=== PATIENT | male | born 1990 | race African-American/Black ===

== ENCOUNTER 2017-06-30 23:51 | Emergency (ER) | payer OTHER ==
[~2017-06-30] VITALS: Ht 182.9 cm; Wt 83.0 kg
[2017-07-01 02:52] VITALS: BP 127/83
== END 2017-07-01 02:54 | disposition home or self-care (01) ==
LOC: ER 23:59
DX: S09.90XA Unspecified injury of head, initial encounter (principal); I10 Essential (primary) hypertension; F17.200 Nicotine dependence, unspecified, uncomplicated; F31.9 Bipolar disorder, unspecified; W01.0XXA Fall on same level from slipping, tripping and stumbling without subsequent striking against object, initial encounter; Y93.89 Activity, other specified; Y99.8 Other external cause status; Y92.89 Other specified places as the place of occurrence of the external cause; Z98.890 Other specified postprocedural states
CPT/HCPCS: 99281

== ENCOUNTER 2017-07-04 01:47 | Emergency (ER) | payer MEDICAID, OTHER ==
[~2017-07-04] VITALS: Ht 182.9 cm; Wt 87.0 kg
[2017-07-04 03:10] LABS: BASOPHILS % 0.7 % (0.0-2.0); EOSINOPHILS % 0.7 % (0.0-5.0); HEMATOCRIT. 47.5 % (42.0-52.0); LYMPHOCYTES % 20.4 % (20.0-50.0); MEAN CORPUSCULAR HEMOGLOBIN 29.8 pg (28.0-32.0); MEAN CORPUSCULAR VOLUME 88.4 fL (80.0-94.0); MEAN PLATELET VOLUME 8.2 fl (7.4-10.4); MONOCYTES % 10.8 % (2.0-8.0); NEUTROPHILS % 67.4 % (40.0-76.0); PLATELET 305 x1000/uL (130-400); RED BLOOD CELL COUNT 5.38 mill/uL (4.7-6.1); RED CELL DISTRIBUTION WIDTH 13.5 % (11.6-14.6)
[2017-07-04 03:12] LABS: CHLORIDE 99 mEq/L (98-107)
[2017-07-04 03:18] LABS: CARBON DIOXIDE 27 mEq/L (21-32); ETHANOL BLOOD < 10 mg/dL
[2017-07-04 03:26] LABS: *AMPHETAMINES SCREEN URINE NEGATIVE (NEGATIVE); *BARBITURATES SCREEN URINE NEGATIVE (NEGATIVE); *BENZODIAZEPINES SCREEN URINE NEGATIVE (NEGATIVE); *COCAINE SCREEN URINE PRESUMTIVE POSITIVE (NEGATIVE); CANNABINOID URINE SCREEN NEGATIVE (NEGATIVE); METHADONE URINE SCREEN NEGATIVE (NEGATIVE); OPIATES URINE SCREEN NEGATIVE (NEGATIVE); PHENCYCLIDINE URINE SCREEN NEGATIVE (NEGATIVE)
[2017-07-04 05:53] VITALS: BP 149/80
== END 2017-07-04 06:25 | disposition home or self-care (01) ==
LOC: ER 01:47
DX: F14.10 Cocaine abuse, uncomplicated (principal); F20.9 Schizophrenia, unspecified; R44.0 Auditory hallucinations; F17.210 Nicotine dependence, cigarettes, uncomplicated; F31.9 Bipolar disorder, unspecified; Z98.890 Other specified postprocedural states; F12.10 Cannabis abuse, uncomplicated
CPT/HCPCS: 36415; 80048; 80305; 80307; 80329; 85025; 99284; G0482

== ENCOUNTER 2017-11-09 00:09 | Emergency (ER) | payer MEDICAID, OTHER ==
[~2017-11-09] VITALS: Ht 182.9 cm; Wt 83.0 kg
[2017-11-09] MEDS ORDERED: ONDANSETRON 4MG ODT PO STA (03:54)
[2017-11-09] MEDS ORDERED: IBUPROFEN 600MG TABLET PO STA (03:54)
[2017-11-09 04:11] LABS: BASOPHILS % 0.6 % (0.0-2.0); EOSINOPHILS % 5.8 % (0.0-5.0); HEMATOCRIT. 46.2 % (42.0-52.0); HEMOGLOBIN. 15.6 g/dL (14.0-18.0); LYMPHOCYTES % 27.8 % (20.0-50.0); MEAN CORPUSCULAR HEMOGLOBIN 29.5 pg (28.0-32.0); MEAN CORPUSCULAR VOLUME 87.7 fL (80.0-94.0); MEAN PLATELET VOLUME 7.9 fl (7.4-10.4); MONOCYTES % 9.8 % (2.0-8.0); PLATELET 250 x1000/uL (130-400); RED BLOOD CELL COUNT 5.27 mill/uL (4.7-6.1)
[2017-11-09 04:18] LABS: CHLORIDE 104 mEq/L (98-107)
[2017-11-09 04:18] LABS: CLARITY URINE CLEAR (CLEAR); COLOR URINE YELLOW (YELLOW); KETONES URINE NEGATIVE (NEGATIVE); LEUKOCYTE ESTERASE URINE NEGATIVE (NEGATIVE); NITRITE URINE NEGATIVE (NEGATIVE); OCCULT BLOOD URINE NEGATIVE (NEGATIVE); PH URINE 6.5 (4.5-8.0); PROTEIN URINE NEGATIVE (NEGATIVE); UROBILINOGEN URINE 0.2 E.U./dL (0.2-1.0)
[2017-11-09 04:19] LABS: INR 1.1; PROTHROMBIN TIME 11.2 sec (9.4-11.6)
[2017-11-09] MEDS ORDERED: MAGNESIUM/ALUMINUM HYDROXIDE/SIMETHICONE 30ML UDC PO STA (04:57)
[2017-11-09] MEDS ORDERED: DICYCLOMINE 10 MG/5 ML ORAL SYR PO STA (04:57)
[2017-11-09] MEDS ORDERED: VISCOUS LIDOCAINE 2% 15 ML UDC PO STA (04:57)
[2017-11-09 05:24] VITALS: BP 122/76
== END 2017-11-09 05:28 | disposition home or self-care (01) ==
LOC: ER 01:21
DX: R10.12 Left upper quadrant pain (principal); R74.0 Nonspecific elevation of levels of transaminase and lactic acid dehydrogenase [LDH]; I10 Essential (primary) hypertension; F12.90 Cannabis use, unspecified, uncomplicated
CPT/HCPCS: 36415; 80053; 81003; 83690; 85025; 85610; 99284; Q0162

== ENCOUNTER 2017-12-12 01:47 | Emergency (ER) | payer OTHER ==
[~2017-12-12] VITALS: Ht 182.9 cm; Wt 87.0 kg
[2017-12-12] MEDS ORDERED: LIDOCAINE 5% PATCH TOP STA (04:22)
[2017-12-12] MEDS ORDERED: SODIUM CHLORIDE 0.9% 1,000 ML IV ONE (04:22)
[2017-12-12 05:27] LABS: BASOPHILS % 0.5 % (0.0-2.0); EOSINOPHILS % 12.9 % (0.0-5.0); HEMATOCRIT. 50.5 % (42.0-52.0); LYMPHOCYTES % 26.5 % (20.0-50.0); MEAN CORPUSCULAR HEMOGLOBIN 29.5 pg (28.0-32.0); MEAN CORPUSCULAR VOLUME 87.4 fL (80.0-94.0); MEAN PLATELET VOLUME 8.1 fl (7.4-10.4); MONOCYTES % 8.9 % (2.0-8.0); NEUTROPHILS % 51.2 % (40.0-76.0); PLATELET 231 x1000/uL (130-400); RED BLOOD CELL COUNT 5.78 mill/uL (4.7-6.1); RED CELL DISTRIBUTION WIDTH 13.3 % (11.6-14.6)
[2017-12-12 05:30] LABS: PROTHROMBIN TIME 10.8 sec (9.4-11.6)
[2017-12-12 05:37] LABS: CHLORIDE 103 mEq/L (98-107)
[2017-12-12 05:42] LABS: ETHANOL BLOOD < 10 mg/dL
[2017-12-12 06:27] LABS: BASOPHILS % 0.6 % (0.0-2.0); HEMATOCRIT. 48.7 % (42.0-52.0); HEMOGLOBIN. 16.5 g/dL (14.0-18.0); LYMPHOCYTES % 25.5 % (20.0-50.0); MEAN CORPUSCULAR HEMOGLOBIN 29.6 pg (28.0-32.0); MEAN CORPUSCULAR VOLUME 87.4 fL (80.0-94.0); MEAN PLATELET VOLUME 8.1 fl (7.4-10.4); MONOCYTES % 8.4 % (2.0-8.0); NEUTROPHILS % 51.5 % (40.0-76.0); PLATELET 244 x1000/uL (130-400); RED BLOOD CELL COUNT 5.57 mill/uL (4.7-6.1); RED CELL DISTRIBUTION WIDTH 13.2 % (11.6-14.6)
[2017-12-12 07:19] VITALS: BP 130/87
== END 2017-12-12 07:19 | disposition home or self-care (01) ==
LOC: ER 01:47
DX: S00.83XA Contusion of other part of head, initial encounter (principal); S02.32XA Fracture of orbital floor, left side, initial encounter for closed fracture; M54.2 Cervicalgia; M54.89 Other dorsalgia; R40.0 Somnolence; V43.52XA Car driver injured in collision with other type car in traffic accident, initial encounter; Y93.89 Activity, other specified; Y92.488 Other paved roadways as the place of occurrence of the external cause; F17.210 Nicotine dependence, cigarettes, uncomplicated
CPT/HCPCS: 36415; 70450; 70486; 71045; 72125; 80053; 83690; 85025; 85610; 99285; G0482; J7030

== ENCOUNTER 2024-07-04 21:23 | Emergency (ER) | payer MEDICAID, OTHER ==
[~2024-07-04] VITALS: Ht 182.9 cm; Wt 85.0 kg
[2024-07-04 21:29] VITALS: O2SAT 99
[2024-07-05] MEDS: CYCLOBENZAPRINE 10MG TABLET PO ONE (02:30)
[2024-07-05] MEDS: KETOROLAC 30MG/ML VIAL IM ONE (02:30)
[2024-07-05] MEDS ORDERED: NAPR-1176 MT (03:41)
[2024-07-05 04:05] VITALS: BP 149/92; PULSE 98; RESP 15; TEMP 36.66960; O2SAT 100
== END 2024-07-05 04:10 | disposition home or self-care (01) ==
LOC: ER 21:23
DX: M54.50 Low back pain, unspecified (principal); I10 Essential (primary) hypertension; W01.0XXA Fall on same level from slipping, tripping and stumbling without subsequent striking against object, initial encounter; Y93.89 Activity, other specified; Y92.89 Other specified places as the place of occurrence of the external cause; Y99.8 Other external cause status
CPT/HCPCS: 72131; 96372; 99285; J1885

== ENCOUNTER 2024-07-29 22:34 | Emergency (ER) | payer MEDICAID, OTHER ==
[~2024-07-29] VITALS: Ht 180.3 cm; Wt 90.0 kg
[~2024-07-29 22:34] MED LIST: NAPR-1176 MT
[2024-07-29 22:43] VITALS: BP 170/96; PULSE 76; RESP 16; TEMP 98.9; O2SAT 100
== END 2024-07-30 00:20 | disposition home or self-care (01) ==
LOC: ER 22:34
DX: F41.9 Anxiety disorder, unspecified (principal); I10 Essential (primary) hypertension; J45.909 Unspecified asthma, uncomplicated; R07.89 Other chest pain
CPT/HCPCS: 93005; 99283

== ENCOUNTER 2024-08-19 03:59 | Emergency (ER) | payer OTHER ==
[~2024-08-19] VITALS: Ht 180.3 cm; Wt 87.0 kg
[2024-08-19 04:06] VITALS: O2SAT 95
[2024-08-19 04:14] VITALS: BP 111/77; PULSE 100; RESP 16; TEMP 98.5; O2SAT 98
== END 2024-08-19 05:12 | disposition left against medical advice (07) ==
LOC: ER 03:59
DX: S61.412A Laceration without foreign body of left hand, initial encounter (principal); J45.909 Unspecified asthma, uncomplicated; I10 Essential (primary) hypertension; W25.XXXA Contact with sharp glass, initial encounter; Y93.89 Activity, other specified; Y92.89 Other specified places as the place of occurrence of the external cause; Y99.8 Other external cause status
CPT/HCPCS: 99281

== ENCOUNTER 2024-08-21 23:09 | Emergency (ER) | payer OTHER ==
[~2024-08-21] VITALS: Ht 172.7 cm; Wt 82.0 kg
[2024-08-21 23:14] VITALS: BP 142/100; PULSE 98; RESP 18; TEMP 36.8; O2SAT 98
== END 2024-08-22 04:06 | disposition left against medical advice (07) ==
LOC: ER 23:09
DX: Z00.8 Encounter for other general examination (principal); J45.909 Unspecified asthma, uncomplicated; I10 Essential (primary) hypertension; Z53.21 Procedure and treatment not carried out due to patient leaving prior to being seen by health care provider

== ENCOUNTER 2024-12-25 10:45 | Emergency (ER) | payer OTHER ==
[~2024-12-25] VITALS: Ht 182.9 cm; Wt 111.0 kg
[2024-12-25 11:09] VITALS: O2SAT 97
[2024-12-25] MEDS ORDERED: LIDOCAINE HCL/PF 1% 10 MG/ML 5ML VIAL INFIL ONE (12:45)
[2024-12-25] MEDS ORDERED: NEOM1PAC6 TP (14:06)
[2024-12-25 14:25] VITALS: BP 135/70; PULSE 75; RESP 18; TEMP 36.6; O2SAT 99
[2024-12-25] MEDS: BACITRACIN ZINC OINT UDPKT TOP ONE (14:25)
== END 2024-12-25 14:26 | disposition home or self-care (01) ==
LOC: ER 10:45
DX: S61.210A Laceration without foreign body of right index finger without damage to nail, initial encounter (principal); I10 Essential (primary) hypertension; J45.909 Unspecified asthma, uncomplicated; X58.XXXA Exposure to other specified factors, initial encounter; Y93.89 Activity, other specified; Y92.89 Other specified places as the place of occurrence of the external cause; Y99.8 Other external cause status
CPT/HCPCS: 12002; 99282; J2003; Z7610 ×2